=== PATIENT | male | born 1965 | race Caucasian/White ===

== ENCOUNTER 2018-01-20 10:20 | Emergency (ER) | payer OTHER ==
[~2018-01-20] VITALS: Ht 175.3 cm; Wt 120.2 kg
[2018-01-20 10:20] VITALS: BP_SYST 165
[2018-01-20] MEDS ORDERED: KETOROLAC TROMETHAMINE 60 MG/2 ML VIAL IM ONE (11:00)
[2018-01-20 12:05] VITALS: BP_SYST 144
== END 2018-01-20 12:05 | disposition home or self-care (01) ==
LOC: SED 10:20
DX: M62.830 Muscle spasm of back (principal); I10 Essential (primary) hypertension
CPT/HCPCS: 72040; 96372; 99284; J1885